=== PATIENT | female | born 2000 | race American Indian/Alaskan Native ===

== ENCOUNTER 2021-07-27 14:00 | Outpatient (CLI) | payer MEDICAID | END 2021-07-27 17:35 | disposition home or self-care (01) | LOC: LAB 14:00 → APU 17:17 → LAB 17:35 | PROVIDERS: ATTEND Obstetrics & Gynecology | DX: O26.893 Other specified pregnancy related conditions, third trimester (principal); Z67.21 Type B blood, Rh negative; Z3A.28 28 weeks gestation of pregnancy | CPT/HCPCS: 86850; 86900; 86901; 96372; J2790 ==

== ENCOUNTER 2021-08-22 11:59 | Outpatient (CLI) | payer OTHER, MEDICAID ==
[2021-08-22 12:46] VITALS: BP 108/57
--- NOTE | 2021-08-22 14:56 | Ultrasound Report ---
ULTRASOUND BIOPHYSICAL PROFILE ULTRASOUND OB LIMITED INDICATION: cramping, evaluate for abruption. TECHNIQUE: Transabdominal ultrasound imaging. COMPARISON: None FINDINGS: breathing movement = 2 Gross body movement = 2 tone = 2 Qualitative amniotic fluid volume = 2 Total biophysical score = 8/8 Amniotic fluid index is 11.1 cm. Presentation is cephalic. heart rate is 147 beats per minute. The placenta is fundal, grade 0. No evidence for abruption. IMPRESSION: biophysical profile equals 8/8. No evidence for abruption. Signer Name: Chaparro Tompkins Jr, MD Signed: 08/22/2021 2:52 PM Workstation Name: [id number]
[2021-08-22 17:02] LABS: Bilirubin,Urine Negative (Negative); Blood,Urine Negative (Negative); Color,Urine Straw (Yellow); Urobilinogen,Urine < 2.0 mg/dL (<2.0)
[2021-08-22 17:12] LABS: Amorphous Crystals,Urine Few; Bacteria,Urine 2+ /HPF (Negative); Mucus,Urine 3+ /HPF
== END 2021-08-22 15:28 | disposition home or self-care (01) ==
LOC: APU 11:59 → TRG 11:59
PROVIDERS: ATTEND Obstetrics & Gynecology
DX: Z34.92 Encounter for supervision of normal pregnancy, unspecified, second trimester (principal); Z3A.29 29 weeks gestation of pregnancy
CPT/HCPCS: 59025; 76815; 76819; 81001

== ENCOUNTER 2021-08-24 01:04 | Inpatient (IN) | payer OTHER, MEDICAID ==
[2021-08-24 02:05] LABS: Mucus,Urine FEW /HPF
[2021-08-24 02:06] LABS: Color,Urine Yellow (Yellow)
[2021-08-24 02:07] LABS: Bilirubin,Urine Moderate (Negative); Blood,Urine Large (Negative)
[2021-08-24 02:08] LABS: PH,Urine 6.5 (5.0-7.0)
[2021-08-24 02:09] LABS: RBC,Urine > 182.0 /HPF (0.0-6.0); WBC,Urine > 182.0 /HPF (0.0-6.0)
[2021-08-24 02:19] LABS: Ictotest,Urine Negative (Negative)
[2021-08-24 02:44] LABS: Basophils # (Auto) 0.1 K/mm3 (0.0-0.1); Basophils % (Auto) 0.5 % (0.0-1.8); Eosinophils # (Auto) 0.1 K/mm3 (0.0-0.4); Eosinophils % (Auto) 0.8 % (0.0-4.3); Hematocrit 33.1 % (30.3-42.9); Hemoglobin 11.2 gm/dl (10.1-14.3); Lymphocytes # (Auto) 2.3 K/mm3 (1.2-5.4); Lymphocytes % (Auto) 14.6 % (13.4-35.0); Mean Corpuscular HGB Conc 34 % (30-34); Mean Corpuscular Volume 88 fl (79-97); Monocytes # (Auto) 1.2 K/mm3 (0.0-0.8); Monocytes % (Auto) 7.2 % (0.0-7.3); Platelet Count 173 K/mm3 (140-440); Red Blood Count 3.75 M/mm3 (3.65-5.03); Red Cell Distribution Width 13.7 % (13.2-15.2)
[2021-08-24] MEDS ORDERED: fentaNYL 100 MCG/2 ML INJ IV PRN (03:06)
[2021-08-24] MEDS ORDERED: ACETAMINOPHEN 325 MG TAB PO PRN (03:06)
[2021-08-24] MEDS ORDERED: ONDANSETRON 4 MG/2 ML INJ IV PRN (03:06)
[2021-08-24] MEDS ORDERED: BUTORPHANOL 2 MG/1 ML INJ IV PRN (03:06)
--- NOTE | 2021-08-24 03:06 | History and Physical Report ---
History of Present Illness Date of examination: 08/24/21 Date of admission: 08/24/2021 Chief complaint: Lower abdominal pain and back pain History of present illness: The patient is a 21-year-old G1, P0 at 30 weeks gestation presents to OB triage reporting back pain and suprapubic pain that is sharp and intermittent and rating it 9/10. There is no vaginal bleeding. There is no leaking of fluid. There are no contractions. There is good movement. Urinalysis reveals large WBC. There is R>L costovertebral angle tenderness. There is an elevated white blood cell count with neutrophilia on CBC. As such, I am clinically suspicious for pyelonephritis. Hence, the patient is admitted to labor and delivery under antepartum status for evaluation management of suspected pyelonephritis and will be given IV antibiotics. Past History Past Medical History: no pertinent history Past Surgical History: no surgical history [employer] SUPERVISOR History: abnormal PAP smear Family/Genetic History: none Social history: no significant social history - Obstetrical History Expected Date of Delivery: 11/02/21 Actual Gestation: 30 Week(s) 0 Day(s) : 1 Para: 0 Medications and Allergies Allergies Allergy/AdvReac Type Severity Reaction Status Date / Time cinnamon Allergy Itching Verified 08/22/21 13:17 Review of Systems All systems: negative - Vital Signs Vital signs: Vital Signs Pulse BP 84 133/70 08/24/21 01:10 08/24/21 01:10 Temp Pulse Resp BP Pulse Ox 98.2 F 84 133/70 08/24/21 01:16 08/24/21 01:10 08/24/21 01:10 - Physical Exam Breasts: Positive: normal Cardiovascular: Regular rate Lungs: Positive: Normal air movement Abdomen: Positive: normal appearance Genitourinary (Female): Positive: normal external genitalia, normal perenium, other (There is suprapubic tenderness and R>L CVAT) Vulva: both: normal Vagina: Positive: normal moisture Uterus: Positive: enlarged Adnexa: both: normal Anus/Rectum: Positive: normal perianal skin, hemorrhoids Extremities: Positive: normal Deep Tendon Reflex Grade: Normal +2 - Obstetrical FHR: category 1 Uterine Contraction Monitor Mode: Palpation Cervical Dilatation: 0 Cervical Effacement Percentage: 0 station: -3 Uterine Contraction Frequency (min): None Uterine Contraction Pattern: Absent Results Result Diagrams: 08/24/21 02:34 08/24/21 05:46 Abnormal lab results 08/24/21 08/24/21 Range/Units 01:46 02:34 WBC 16.0 H (4.5-11.0) K/mm3 [place] # (Auto) 1.2 H (0.0-0.8) K/mm3 Seg Neutrophils % 76.9 H (40.0-70.0) % Seg Neutrophils # 12.3 H (1.8-7.7) K/mm3 Urine Blood Large A (Negative) Urine WBC (Auto) > 182.0 H (0.0-6.0) /HPF All other labs normal. Ultrasound: report reviewed, image reviewed (OB Transvaginal Ultrasound= cervical length is 4 cm.), other ((B) renal ultrasound= mild right pelviectasis without nupur hydronephrosis.) Assessment and Plan - Patient Problems (1) 30 weeks gestation of Current Visit: Yes Status: Acute Plan to address problem: care is up-to-date at [facility]. Morning shift nursing staff to obtain records. (2) Pyelonephritis affecting in third trimester Current Visit: Yes Status: Acute Plan to address problem: As this patient has R>L costovertebral angle tenderness, large WBC in the urine, and an elevated white blood cell count with neutrophilia on CBC, I am clinically suspicious for pyelonephritis. Admit patient to labor and delivery. Obtain urine culture from straight cath. Start IV Rocephin for empiric treatment. Control pain with IV morphine as needed. Observe patient and repeat CBC tomorrow morning. If/when patient clinically improves, discharged home on oral Omnicef or Suprax. (3) Rh negative status during in third trimester Current Visit: Yes Status: Acute Plan to address problem: The patient is Rh-. She received RhoGAM at 28 weeks gestation.
[2021-08-24] MEDS ORDERED: MORPHINE 4 MG/1 ML INJ IV PRN (03:11)
[2021-08-24] MEDS ORDERED: MORPHINE 2 MG/1 ML INJ IV PRN (03:11)
--- NOTE | 2021-08-24 04:09 | Ultrasound Report ---
ULTRASOUND OBSTETRIC COMPLETE INDICATION / CLINICAL INFORMATION: Pain. Clinical Gestational Age (GA) in weeks, days: 30 weeks 0 days TECHNIQUE: Transabdominal and Transvaginal. COMPARISON: None available. FINDINGS: NUMBER: Single PRESENTATION: cephalic PLACENTA: Not imaged MATERNAL ADNEXA: No significant abnormality. AMNIOTIC FLUID VOLUME: normal AMNIOTIC FLUID INDEX ([place]) in cm (if measured): 11.5 MEASUREMENTS: - Biparietal Diameter = 7.7 cm = 30 weeks 6 days - Head Circumference = 29.6 cm = 32 weeks 5 days - Abdominal Circumference = 25.6 cm = 29 weeks 5 days - Femur Length = 5.3 cm = 28 weeks 2 days - Estimated Weight (in grams, if calculated): 1424 - Heart Rate (beats per minute): 144 ADDITIONAL FINDINGS: Cervix measures 4 cm on transvaginal imaging. AVERAGE ULTRASOUND AGE (AUA) in weeks, days = 30 weeks 3 days IMPRESSION: 1. Single intrauterine with AUA of 30 weeks 3 days. 2. No significant sonographic abnormality. Signer Name: Shashank Aguirre MD Signed: 08/24/2021 4:05 AM Workstation Name: [id number]
--- NOTE | 2021-08-24 04:11 | Ultrasound Report ---
. ULTRASOUND RENAL INDICATION / CLINICAL INFORMATION: Back pain. COMPARISON: None available. FINDINGS: RIGHT KIDNEY: Size (in cm): 12.1 - Echogenicity: Normal. - Parenchymal Thickness: Normal. - Hydronephrosis: Mild right pelviectasis without nupur hydronephrosis. - Cyst or mass: No significant abnormality. - Stones: Nonobstructing shadowing echogenic focus in the upper pole calyx measures 9 mm. This likely reflects fat rather than renal stone. LEFT KIDNEY: Size (in cm): 11.6 - Echogenicity: Normal. - Parenchymal Thickness: Normal. - Hydronephrosis: None. - Cyst or mass: No significant abnormality. - Stones: None seen. URINARY BLADDER: No significant abnormality. FREE FLUID: None. ADDITIONAL FINDINGS: None. IMPRESSION: 1. Mild right pelviectasis without nupur hydronephrosis. Findings are nonspecific but may be related to . 2. Normal sonographic appearance of the left kidney. Signer Name: Shashank Aguirre MD Signed: 08/24/2021 4:07 AM Workstation Name: [id number]
[2021-08-24] MEDS: cefTRIAXone/NS 1 GM/50 ML 1 GM/50 ML BAG IV SCH (04:57)
[2021-08-24] MEDS: SODIUM CHLORIDE 0.9% 1000 ML 1,000 ML IV SCH ×2 (04:58→15:44)
[2021-08-24 06:21] LABS: Blood Urea Nitrogen 9 mg/dL (7-17); Calcium 8.9 mg/dL (8.4-10.2); Hemolysis Index 3
[2021-08-24 06:22] LABS: BUN/Creatinine Ratio 15
--- NOTE | 2021-08-24 20:53 | Event Note ---
Date: 08/24/21 S: Feeling better O: afebrile A: Probable pyelonephritis p: Continue antibiotics Possible discharge in am
[2021-08-25] MEDS: cefTRIAXone/NS 1 GM/50 ML 1 GM/50 ML BAG IV SCH (04:16)
--- NOTE | 2021-08-25 07:59 | Event Note ---
Date: 08/25/21 S: Feeling good O: Afebrile, CBC pending A: Pyelonephritis @ 29 weeks P: If WBC down can go home Keflex 500 mg po tid x 1 week sent to Pharmacy
[2021-08-25 09:23] LABS: Basophils # (Auto) 0.2 K/mm3 (0.0-0.1); Basophils % (Auto) 1.7 % (0.0-1.8); Eosinophils # (Auto) 0.1 K/mm3 (0.0-0.4); Eosinophils % (Auto) 1.2 % (0.0-4.3); Hematocrit 34.4 % (30.3-42.9); Hemoglobin 11.5 gm/dl (10.1-14.3); Lymphocytes # (Auto) 2.5 K/mm3 (1.2-5.4); Lymphocytes % (Auto) 25.1 % (13.4-35.0); Mean Corpuscular HGB Conc 33 % (30-34); Mean Corpuscular Volume 90 fl (79-97); Monocytes # (Auto) 0.5 K/mm3 (0.0-0.8); Monocytes % (Auto) 4.8 % (0.0-7.3); Platelet Count 177 K/mm3 (140-440); Red Blood Count 3.81 M/mm3 (3.65-5.03); Red Cell Distribution Width 13.5 % (13.2-15.2)
--- NOTE | 2021-08-25 12:14 | Discharge Summary ---
Providers - Providers Date of Admission: 08/24/21 03:06 Date of discharge: 08/25/21 Attending physician: AIDAN HASKINS MD Primary care physician: AIDAN HASKINS MD Hospitalization Reason for admission: other (ABD and Low Back Pain) Delivery: other (undelivered) Other procedures: none complications: none Discharge diagnosis: other (Pyelonephritis) Condition at discharge: Good Disposition: 01 HOME / SELF CARE / HOMELESS Plan - Discharge Medications Prescriptions: cephALEXin [Keflex] 500 mg PO Q6HR 7 Days #28 capsule - Provider Discharge Summary Activity: routine Diet: routine Instructions: routine Additional instructions: [] Smoking cessation referral if applicable(refer to patient education folder for contact #) [] Refer to [facility] Booklet Call your doctor immediately for: * Fever > 100.5 * Heavy vaginal bleeding ( >1 pad per hour) * Severe persistent headache * Shortness of breath * Reddened, hot, painful area to leg or breast * Drainage or odor from incision. * Keep incision clean and dry at all times and follow doctor's instructions regarding bathing/showering - Follow up plan Follow up: AIDAN HASKINS MD [Primary Care Provider] - 7 Days
[2021-08-25 13:01] VITALS: BP 112/64
== END 2021-08-25 13:04 | disposition home or self-care (01) | DRG 833 ==
LOC: TRG 01:04 → APU 01:05 → TRG 03:06 → LD 03:06
PROVIDERS: ADMIT Obstetrics & Gynecology; ATTEND Obstetrics & Gynecology
DX: O23.03 Infections of kidney in pregnancy, third trimester (principal); Z20.822 Contact with and (suspected) exposure to COVID-19; Z3A.30 30 weeks gestation of pregnancy; B96.89 Other specified bacterial agents as the cause of diseases classified elsewhere; Z88.8 Allergy status to other drugs, medicaments and biological substances
CPT/HCPCS: 36415; 76770; 76816; 76817; 80048; 81001; 85025; 86850; 86870; 86900; 86901; 87086; G0378; J0696; J2270; J7030; U0003

== ENCOUNTER 2021-11-05 12:58 | Outpatient (CLI) | payer MEDICAID | END 2021-11-05 16:01 | disposition home or self-care (01) | LOC: TRG 12:58 → APU 13:13 → TRG 16:01 | PROVIDERS: ATTEND Obstetrics & Gynecology Gynecology | DX: Z34.93 Encounter for supervision of normal pregnancy, unspecified, third trimester (principal); Z3A.40 40 weeks gestation of pregnancy | CPT/HCPCS: 59025 ==

== ENCOUNTER 2021-11-09 08:44 | Inpatient (IN) | payer MEDICAID ==
[2021-11-09] MEDS ORDERED: OXYTOCIN DRIP 30 UNITS/500 ML BAG IV SCH ×2 (11:00)
--- NOTE | 2021-11-09 11:03 | History and Physical Report ---
History of Present Illness Date of examination: 11/09/21 Date of admission: November 09, 2021 Chief complaint: Here for induction of labor History of present illness: 21 y/o with care at [facility] presents to labor and delivery for post dates induction of labor. GBS negative. Past History Past Medical History: no pertinent history Past Surgical History: no surgical history Family/Genetic History: none Social history: no significant social history - Obstetrical History Expected Date of Delivery: 11/02/21 Actual Gestation: 41 Week(s) 0 Day(s) : 1 Para: 0 Number of Living Children: 0 Medications and Allergies Allergies Allergy/AdvReac Type Severity Reaction Status Date / Time cinnamon Allergy Mild Itching Verified 11/05/21 15:36 Home Medications Medication Instructions Recorded Confirmed Last Taken Type cephALEXin [Keflex] 500 mg PO Q6HR 7 Days #28 capsule 08/25/21 Unknown Rx Review of Systems All systems: negative - Vital Signs Vital signs: Vital Signs Pulse BP 78 112/71 11/09/21 10:44 11/09/21 10:44 Temp Pulse Resp BP Pulse Ox 87 112/71 95 11/09/21 11:00 11/09/21 10:44 11/09/21 11:00 - Physical Exam Breasts: Positive: deferred Cardiovascular: Regular rate Lungs: Positive: Clear to auscultation Abdomen: Positive: soft Genitourinary (Female): Positive: normal external genitalia Vulva: both: normal Vagina: Positive: normal moisture Uterus: Positive: enlarged Anus/Rectum: Positive: normal perianal skin Deep Tendon Reflex Grade: Normal +2 - Obstetrical FHR: category 1 Uterine Contraction Monitor Mode: Palpation Cervical Dilatation: 3 Cervical Effacement Percentage: 70 station: -1 Uterine Contraction Pattern: Absent Results Result Diagrams: 11/09/21 10:51 All other labs normal. Assessment and Plan A: 41.1 weeks induction of labor P: Pitocin induction
[2021-11-09] MEDS ORDERED: LOPERAMIDE 2 MG CAP PO NR (11:30)
[2021-11-09] MEDS ORDERED: ePHEDrine SULFATE 50 MG/1 ML INJ IV PRN ×2 (11:30→21:26)
[2021-11-09] MEDS ORDERED: ACETAMINOPHEN 325 MG TAB PO PRN (11:30)
[2021-11-09] MEDS ORDERED: OXYTOCIN 10 UNIT/1 ML INJ IM NR (11:30)
[2021-11-09] MEDS ORDERED: METHYLERGONOVINE MALEATE 0.2 MG/ML VIAL IM NR (11:30)
[2021-11-09] MEDS ORDERED: CARBOPROST TROMETHAMINE 250 MCG/1 ML INJ IM NR (11:30)
[2021-11-09] MEDS ORDERED: TERBUTALINE 1 MG/1 ML INJ SUB-Q NR (11:30)
[2021-11-09] MEDS ORDERED: miSOPROStol 200 MCG TAB PR NR (11:30)
[2021-11-09] MEDS ORDERED: BUTORPHANOL 2 MG/1 ML INJ IV PRN ×2 (11:30)
[2021-11-09] MEDS ORDERED: LIDOCAINE (2%) 20 MG/1 ML VIAL 20 ML MDV INFILTRATI NR (11:30)
[2021-11-09 11:56] LABS: Hematocrit 34.9 % (30.3-42.9); Mean Corpuscular HGB Conc 34 % (30-34); Mean Corpuscular Volume 88 fl (79-97); Platelet Count 160 K/mm3 (140-440); Red Blood Count 3.95 M/mm3 (3.65-5.03); Red Cell Distribution Width 13.9 % (13.2-15.2)
[2021-11-09] MEDS: LACTATED RINGERS 1,000 ML IV SCH ×3 (17:31→21:22)
--- NOTE | 2021-11-09 20:15 | Event Note ---
Date: 11/09/21 S: Feeling contractions O: VE /-1, Arom clear fluid, small amount A: 40.2 weeks induction of labor P: Epidural Continue pitocin augmentation
[2021-11-09] MEDS ORDERED: NALOXONE 0.4 MG/1 ML INJ IV PRN (21:26)
--- NOTE | 2021-11-09 21:31 | Progress Note ---
Labor Epidural - Labor Epidural Start Time: 21:00 Stop Time: 21:10 Performed by:: MILAN CONCEPCION Procedure: Patient is requesting a laboring epidural for laboring pain. Patient IDed, H&P reviewed, all questions and concerns were answered, and consent was signed. Timeout was performed at bedside. Patient in sitting position. Sterile prep and drape was performed. [3] ml of 1% lidocaine skin wheal at L[3]- L [4] x 2 attempts. 17-gauge Tuohy epidural needle was advanced to loss of resistance with saline technique 6cm. Single dural perforation via 25 gauge spinal needle placed through the shaft of Epidural needle. Positive CSF via spinal needle. Negative CSF negative blood via Epidural needle. Epidural catheter advanced to [10] centimeters. [NEGATIVE] Aspiration [NEGATIVE] test dose. Negative Paresthesia. Sterile dressing applied. Patient tolerated procedure.
--- NOTE | 2021-11-09 21:32 | Anesthesia Consultation ---
Anesthesia Consult and Med Hx Date of service: 11/09/21 - Airway Anesthetic Teeth Evaluation: Good ROM Head & Neck: Adequate Mental/Hyoid Distance: Adequate Mallampati Class: Class II Intubation Access Assessment: Probably Good - Pulmonary Exam CTA: Yes - Cardiac Exam Cardiac Exam: RRR - Pre-Operative Health Status ASA Pre-Surgery Classification: ASA2 Proposed Anesthetic Plan: Epidural - Pulmonary Hx Asthma: No COPD: No Hx Pneumonia: No - Cardiovascular System Hx Hypertension: No - Central Nervous System Hx Seizures: No Hx Psychiatric Problems: No - Endocrine Hx Renal Disease: No Hx End Stage Renal Disease: No Hx Hypothyroidism: No Hx Hyperthyroidism: No - Hematic Hx Anemia: No Hx Sickle Cell Disease: No - Other Systems Hx Alcohol Use: No
[2021-11-09] MEDS ORDERED: MINERAL OIL 30 ML ORAL LIQD PO PRN (22:00)
[2021-11-09] MEDS ORDERED: fentaNYL-BUPIV 2 MCG/ML-0.125% 200 MCG/100 ML BAG EPIDURAL SCH (22:00)
[2021-11-10] MEDS: LACTATED RINGERS 1,000 ML IV SCH
[2021-11-10] MEDS ORDERED: miSOPROStol 200 MCG TAB ONE (03:14)
[2021-11-10] MEDS ORDERED: diphenhydrAMINE 25 MG CAP PO PRN (03:56)
[2021-11-10] MEDS ORDERED: MAGNESIUM HYDROXIDE (MOM) ORAL LIQD UDC PO PRN (03:56)
[2021-11-10] MEDS ORDERED: WITCH HAZEL/ GLYCERIN PAD TP PRN (03:56)
[2021-11-10] MEDS ORDERED: ACETAMINOPHEN 325 MG TAB PO PRN (03:56)
[2021-11-10] MEDS ORDERED: LANOLIN/ZINC/DIMETHICONE (LANSINOH) 7 GM TP PRN (03:56)
--- NOTE | 2021-11-10 03:56 | Procedure Note ---
OB Delivery Note - Delivery Date of Delivery: 11/10/21 Surgeon: LAI AVITIA Estimated blood loss: 500cc - Vaginal Delivery presentation: vertex Delivery position: OA Delivery induction: oxytocin Delivery augmentation: rupture of membranes Delivery monitor: external FHT, external uterine Route of delivery: Delivery placenta: spontaneous Delivery cord: 3 umbilical vessels Episiotomy: none Delivery laceration: 1st degree Delivery repair: vicryl Anesthesia: epidural Delivery comments: of a viable male 8#12oz on 11/10/2021 @ 0303 over 1st degree vaginal floor laceration. Placenta delivered 3 VCI. Laceration repaired with 2-0 vicryl. 8/9. Mother and baby doing well. - A at 1 minute: 8 at 5 minutes: 9 Gender: Male (8# 12 oz)
[2021-11-10] MEDS: IBUPROFEN 800 MG TAB PO SCH ×3 (08:06→22:42)
[2021-11-10] MEDS: oxyCODONE /ACETAMINOPHEN 5-325MG TAB PO PRN (13:31)
--- NOTE | 2021-11-10 14:07 | Post Anesthesia Evaluation ---
- Post Anesthesia Evaluation Patient Participated: Yes Airway Patent: Yes Stable Respiratory Function: Yes Nausea/Vomiting: No Temp > 96.8F: Yes Pain Manageable: Yes Adequeate Hydration: Yes Anesthesia Complications: No Block Receding Appropriately: Yes Patient on Ventilator: No
[2021-11-10 20:27] LABS: Hematocrit 32.3 % (30.3-42.9); Hemoglobin 10.8 gm/dl (10.1-14.3)
[2021-11-11] MEDS: IBUPROFEN 800 MG TAB PO SCH ×4 (00:10→17:06)
[2021-11-11] MEDS: oxyCODONE /ACETAMINOPHEN 5-325MG TAB PO PRN (01:10)
[2021-11-11] MEDS ORDERED: medroxyPROGESTERone ACETATE 150 MG/ML SYRINGE IM ONE (13:33)
--- NOTE | 2021-11-11 13:35 | Progress Note ---
Assessment and Plan A: PP Day #1 Stable P: Follow Routine Orders D/C home today per patient request Depo Provera 150mg IM x 1 dose prior to discharge RTO in 6 Weeks Subjective - Subjective Date of service: 11/11/21 Patient reports: appetite normal, voiding normally, pain well controlled, flatus, ambulating normally : doing well, bottle feeding Objective - Vital Signs Latest vital signs: Vital Signs Temp Pulse Resp BP Pulse Ox Pulse Ox Pulse Ox 11/11/21 09:32 97.9 F 18 110/72 11/11/21 07:45 100 100 11/11/21 01:11 98.0 F 81 18 98/62 100 11/11/21 01:10 17 11/10/21 22:42 17 11/10/21 20:00 99 96 11/10/21 16:37 98.1 F 79 18 108/71 98 Intake and Output 11/10/21 11/11/21 11/11/21 22:59 06:59 14:59 Intake Total 240 Balance 240 Intake: Intake, Free Water 240 Other: # Voids Void 1 1 2 - Exam Breasts: Present: normal Cardiovascular: Present: Regular rate Lungs: Present: Clear to auscultation, Normal air movement Abdomen: Present: normal appearance, soft, normal bowel sounds Uterus: Present: normal, firm, fundal height below umbilicus Extremities: Present: normal
--- NOTE | 2021-11-11 13:36 | Discharge Summary ---
Providers - Providers Date of Admission: 11/09/21 08:45 Date of discharge: 11/11/21 Attending physician: BOBBI BURRELL MD Primary care physician: BOBBI BURRELL MD Hospitalization Reason for admission: induction of labor Delivery: Episiotomy: none Laceration: 1st degree Other procedures: none complications: none Discharge diagnosis: IUP at term delivered [place] baby: male Condition at discharge: Good Disposition: 01 HOME / SELF CARE / HOMELESS Plan - Provider Discharge Summary Activity: routine, no sex for 6 weeks, no heavy lifting 4 weeks, no strenuous exercise Diet: routine Instructions: routine Additional instructions: [] Smoking cessation referral if applicable(refer to patient education folder for contact #) [] Refer to [facility] Booklet Call your doctor immediately for: * Fever > 100.5 * Heavy vaginal bleeding ( >1 pad per hour) * Severe persistent headache * Shortness of breath * Reddened, hot, painful area to leg or breast * Drainage or odor from incision. * Keep incision clean and dry at all times and follow doctor's instructions regarding bathing/showering - Follow up plan Follow up: OBBBI BURRELL MD [Primary Care Provider] - 6 Weeks
[2021-11-12] MEDS: IBUPROFEN 800 MG TAB PO SCH ×3 (00:16→12:29)
--- NOTE | 2021-11-12 09:15 | Progress Note ---
Assessment and Plan A: PP#2 Emotional P: Continue PP care per unit protocol Mental health (MH) consult Anticipate D/c home today once cleared by MH Subjective - Subjective Date of service: 11/12/21 Principal diagnosis: , High [place] score Patient reports: appetite normal, voiding normally, pain well controlled, ambulating normally : doing well, nursing well Objective - Vital Signs Latest vital signs: Vital Signs Temp Pulse Resp BP Pulse Ox Pulse Ox Pulse Ox 11/12/21 08:30 98 98 11/12/21 08:21 97.5 F L 79 18 122/84 100 11/12/21 01:04 98.0 F 83 20 120/85 99 11/11/21 20:30 100 100 11/11/21 16:06 98.1 F 18 124/79 11/11/21 09:32 97.9 F 18 110/72 Intake and Output 11/11/21 11/12/21 11/12/21 23:59 07:59 15:59 Intake Total 240 240 Balance 240 240 Intake: Oral 240 240 Other: Total, Intake Amount 240 120 # Voids Void 1 1 - Exam Breasts: Present: normal, Cardiovascular: Present: Regular rate Lungs: Present: Clear to auscultation Abdomen: Present: normal appearance, soft Uterus: Present: firm, fundal height below umbilicus Extremities: Present: normal Deep Tendon Reflex Grade: Normal +2
--- NOTE | 2021-11-12 12:39 | Consultation ---
History of Present Illness - Reason for Consult Consult date: 11/12/21 Reason for consult: [place] score - History of Present Psychiatric Illness The patient was seen today via telepsysch. She is a 21y/o female admitted for induction of labor. The patient says she gave to a little boy. She is pleasant, and polite. She says when she filled out the form, she was just feeling nervous about everything. The patient says "this is my first child, and just being a first time mom got me nervous." She says "I don't want to mess anything up and make sure I'm meeting his needs." I ensure the patient that since she wants to do a good job, she will be a good mom. The patient says she's also excited to have her baby. She says she has a good family support system and has good role models for parenting. She denies ever seeing a psychiatrist or any past psychiatric history. The patient denies being on any psych meds. She says she had thoughts of suicide when she was about 14 because she was mad at her mom. The patent says "I was young and stupid then. I just thought of it but didn't do anything to myself." She denies SI/HI or any hallucinations. The patient denies any illicit drug use, alcohol or nicotine. She says before she got she did "weed, but now now." The patient says she lives with the child's father. She says she is unemployed, but on maternity leave. Discussed with the patient benefits of counseling to help her deal with stress and feelings of overwhelm as a new mom. REVIEW OF SYSTEMS Constitutional: Negative for weight loss ENT: Negative for stridor Respiratory: Negative for cough or hemoptysis All other systems reviewed and are negative MENTAL STATUS EXAMINATION General Appearance and Behavior: pleasant and polite, conversational Cooperation: cooperative Psychomotor Behavior: Psychomotor normal Mood: excited Affect and affective range: Thought Process: Goal directed Thought Content: optimism Speech: Normal volume, Regular rate and rhythm Suicidal Ideation: Denies Homicidal Ideation: Denies Hallucination: Denies Delusions: None elicited Impulse Control: Normal Insight and Judgment: Normal Memory: Normal Attention: attentive Orientation: a/o x 3 Diagnoses: Encounter for Mental Health Eval Treatment Plan No scripts given Medical: per primary Sitter: defer to primary Disposition: Do not recommend acute psychiatric inpatient treatment. The card checker to give the patient resources for counseling. Will sign off. Thanks Case staffed with Dr. Schneider Medications and Allergies Allergies Allergy/AdvReac Type Severity Reaction Status Date / Time cinnamon Allergy Mild Itching Verified 11/05/21 15:36 Home Medications Medication Instructions Recorded Confirmed Last Taken Type cephALEXin [Keflex] 500 mg PO Q6HR 7 Days #28 capsule 08/25/21 Unknown Rx Active Meds: Active Medications Acetaminophen (Acetaminophen 325 Mg Tab) 650 mg PO Q4H PRN PRN Reason: Pain MILD(1-3)/Fever >100.5/PHIPPS Bisacodyl (Bisacodyl 10 Mg Rect Supp) 10 mg NM BID PRN PRN Reason: Constipation Diphenhydramine HCl (Diphenhydramine 25 Mg Cap) 25 mg PO Q6H PRN PRN Reason: Itching Ibuprofen (Ibuprofen 800 Mg Tab) 800 mg PO Q6HR PHI Last Admin: 11/12/21 12:29 Dose: 800 mg Magnesium Hydroxide (Magnesium Hydroxide (Mom) Oral Liqd Udc) 30 ml PO HS PRN PRN Reason: Constipation Multi-Ingredient Ointment (Lanolin/Zinc/Dimethicone (Lansinoh) 7 Gm) 1 applic TP PRN PRN PRN Reason: Sore Nipples Oxycodone/Acetaminophen (Oxycodone /Acetaminophen 5-325mg Tab) 1 tab PO Q6H PRN PRN Reason: Pain, Moderate (4-6) Last Admin: 11/11/21 01:10 Dose: 1 tab Sodium Chloride (Sodium Chloride 0.9% 10 Ml Flush Syringe) 10 ml IV PRN PRN PRN Reason: LINE FLUSH Witch Roxanna/Glycerin (Witch Roxanna/ Glycerin Pad) 1 each TP PRN PRN PRN Reason: Hemorrhoid/cleansing/soothing Mental Status Exam - Vital signs Last Vital Signs Temp 97.5 F L 11/12/21 08:21 Pulse 79 11/12/21 08:21 Resp 18 11/12/21 08:21 BP 122/84 11/12/21 08:21 Pulse Ox 98 11/12/21 08:30 Results Result Diagrams: 11/10/21 19:55 All other labs normal.
[2021-11-12 16:48] VITALS: BP 98/62
== END 2021-11-12 17:14 | disposition home or self-care (01) | DRG 775 ==
LOC: TRG 08:44 → LD 08:45 → TRG 11:00 → OB 11-10 07:07
PROVIDERS: ADMIT Obstetrics & Gynecology Gynecology; ATTEND Obstetrics & Gynecology Gynecology
PROC: 10E0XZZ Delivery of Products of Conception, External Approach (ICD-10-PCS; principal; 2021-11-10)
PROC: 0HQ9XZZ Repair Perineum Skin, External Approach (ICD-10-PCS; 2021-11-10)
PROC: 3E0R3BZ Introduction of Anesthetic Agent into Spinal Canal, Percutaneous Approach (ICD-10-PCS; 2021-11-10)
PROC: 00HU33Z Insertion of Infusion Device into Spinal Canal, Percutaneous Approach (ICD-10-PCS; 2021-11-10)
PROC: 3E033VJ Introduction of Other Hormone into Peripheral Vein, Percutaneous Approach (ICD-10-PCS; 2021-11-10)
DX: O70.0 First degree perineal laceration during delivery (principal); Z3A.41 41 weeks gestation of pregnancy; Z37.0 Single live birth; Z20.822 Contact with and (suspected) exposure to COVID-19
CPT/HCPCS: 36415; 59025; 85014; 85018; 85027; 85461; 86706; 86850; 86900; 86901; G0378; J3490; J2590; J2790; J7120; U0003